=== PATIENT | female | born 1980 | race Caucasian/White ===

== ENCOUNTER 2017-04-13 09:19 | Emergency (ER) | payer MEDICAID ==
[2017-04-13 09:44] VITALS: RESP 16
[2017-04-13] MEDS ORDERED: DEXAMETHASONE 4 MG/ML VIAL IM ONE (10:17)
[2017-04-13] MEDS ORDERED: KETOROLAC 15 MG/1 ML SDV IM ONE (10:17)
--- NOTE | 2017-04-13 10:20 | EDPHY ---
H & P Stated Complaint: Low back/sacral pain w/sciatica bilaterally x 4 days Time Seen by Provider: 04/13/17 10:18 HPI/ROS: HPI: This is a 36-year-old female who presents with Chief Complaint: Low back/sacral pain w/sciatica bilaterally x 4 days Location: Right lower back greater than left lower back Quality: Pain Duration: 4 days Signs and Symptoms: No bleeding, no radiation, no numbness, no weakness, no tingling, no incontinence, + decreased range of motion, no swelling, + pain Timing: Acute, worse with movement Severity: Moderate Context: Patient reports that she is currently breast-feeding, infant at home of 8 months of age, presents with complaints of right greater than left lower back discomfort after she lifted her 22 lb infant out of the crib approximately 4 days ago. She had pelvic congestion and lower back pain during her , status post . She has been to physical therapy with improvement of her symptoms. She is ambulatory without deficits and denies incontinence/urinary symptoms/fever/vaginal bleeding or discharge. Patient reports that she does not have a primary care provider as they moved to the area when she was has only been seen by OBGYN. She has been performing yoga and Pilates to increase her core and gently stretch. Last BM was 2 days ago. Modifying Factors: Comment: ROS: see HPI Constitutional: No fever, no chills, no weight loss Eyes: No blurred vision Respiratory: No shortness of breath, no cough Cardiovascular: No chest pain Gastrointestinal: No nausea, no vomiting no diarrhea Genitourinary: No dysuria Extremities: No myalgias Neurologic: No weakness, no numbness Skin: No rashes Hematologic: No bruising, no bleeding MEDICAL/SURGICAL/SOCIAL HISTORY: Medical history: Generally healthy. Does not take any regular medications. Surgical history: Denies Social history: . CONSTITUTIONAL: awake and alert, no obvious distress HEENT: Atraumatic and normocephalic. NECK: supple, no midline tenderness, flexion 45 degrees, extension 45 degrees, right and left lateral flexion 45 degrees. No meningismus. Cardiovascular: Normal S1/S2, regular rate, regular rhythm, without murmur rub or gallop. PULMONARY/CHEST: Symmetrical and nontender. no crepitus. Clear to auscultation bilaterally. Good air movement. No accessory muscle usage. ABDOMEN: Soft, nondistended, nontender, no ecchymosis. PELVIC: no pain with rocking; bilateral hips flexion 125 degrees, extension 30 degrees, with no pain internal rotation and no pain external rotation. BACK: No midline tenderness, no paraspinous spasm, deep tendon reflexes 2/2, mild pain with right greater than left straight leg raise, pain experiencing reproduced when pressure applied on the anterior aspect of the SI joint, no pain with thigh thrust, right greater than left reproducible pain with KATE. EXTREMITIES: 2/2 pulses, no deformities, no clubbing, no cyanosis or edema. NEUROLOGICAL: no focal neuro deficits. GCS 15. Light touch sensation intact. SKIN: Warm and dry, no erythema. no rash. Good capillary refill. Source: Patient Exam Limitations: No limitations - Personal History LMP (Females 10-55): Over 28 Days Ago Current Tetanus Diphtheria and Acellular Pertussis (TDAP): Yes - Medical/Surgical History Other PMH: Back issues since C sect 8 mos ago - Social History Smoking Status: Former smoker Constitutional: Initial Vital Signs Temperature (C) 36.9 C 04/13/17 09:40 Heart Rate 84 04/13/17 09:40 Respiratory Rate 16 04/13/17 09:40 Blood Pressure 104/71 04/13/17 09:40 O2 Sat (%) 96 04/13/17 09:40 O2 Delivery Mode Room Air Allergies/Adverse Reactions: latex Allergy (Mild, Verified 04/13/17 09:44) itch Home Medications: Medication Instructions Recorded Cyclobenzaprine [Flexeril 10 MG 10 mg PO TID PRN #15 tab 04/13/17 (*)] methylPREDNISolone [Medrol Dose 1 each PO AD #0 ea 04/13/17 Selvin] Medical Decision Making - Diagnostics Imaging Results: Imaging Impressions Lumbar Spine X-Ray 04/13/17 10:17 Impression: No acute findings in the lumbar spine. Pelvis X-Ray 04/13/17 10:17 Impression: 1. No acute osseous findings. 2. 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 Patient ambulatory at discharge and appreciative of care. This patient was seen under the supervision of my secondary supervising physician. I evaluated care for this patient independently. Differential Diagnosis: Back pain including but not limited to muscular pain, herniated disc, spine fracture, intra-abdominal causes and urinary tract infection. - Data Points Medications Given: Discontinued Medications Dexamethasone (Decadron Injection) 8 mg IM EDNOW ONE Stop: 04/13/17 10:18 Last Admin: 04/13/17 10:43 Dose: 8 mg Ketorolac Tromethamine (Toradol) 30 mg IM EDNOW ONE Stop: 04/13/17 10:18 Last Admin: 04/13/17 10:44 Dose: 30 mg Departure - Departure Disposition: Home, Routine, Self-Care Clinical Impression: Sacroiliac joint pain Condition: Good Instructions: Sacroiliitis (ED), Sacroiliac Joint Injection (DC) Additional Instructions: Take Medrol Dosepak for the next 6 days. Please make sure to drink plenty fluids while taking steroids. Use Flexeril every 8 hr as needed for muscle spasm. X-ray today shows large amount of stool burden; take MiraLax daily until having normal soft bowel movements and increase fluid intake/fiber. Follow up with [facility] in 1-2 weeks at which time they will evaluate and recommend with you if conservative management versus further imaging is indicated. Referrals: Carrie Tony [Physician Dedicated Driver] - As per Instructions Prescriptions: Cyclobenzaprine [Flexeril 10 MG (*)] 10 mg PO TID PRN #15 tab PRN Reason: Spasms methylPREDNISolone [Medrol Dose Selvin] 1 each PO AD #0 ea
[2017-04-13 12:24] VITALS: BP 100/61; PULSE 70; TEMP 96.8; O2SAT 98
--- NOTE | 2017-04-16 12:18 | ASMTCMCOM ---
CM Note CM Note Notes: Pt. 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 Email stated that pt. called to sammie a follow up appointment with WHITLEY Tony [phone] as per discharge instructions. Pt was told that provider does not accept Medicaid. The SW called referral office and was aked to fax discharge viki osei of [facility] to [phone]. Paperwork faxed with [employer]. Provider stated that they would follow up with the pt. Voicemail left for pt at [phone]. Date Signed: 04/16/2017 12:18 PM Electronically Signed By:Raúl Roque LCSW
== END 2017-04-13 12:00 | disposition home or self-care (01) ==
DX: M53.3 Sacrococcygeal disorders, not elsewhere classified (principal); Z87.891 Personal history of nicotine dependence; Z91.040 Latex allergy status
CPT/HCPCS: J1100; J1885